=== PATIENT | female | born 2000 | race Caucasian/White ===

== ENCOUNTER 2019-06-21 00:32 | Emergency (ER) | payer MEDICAID ==
[~2019-06-21] VITALS: Ht 160 cm; Wt 126.1 kg
[2019-06-21 00:36] VITALS: Ht 160 cm; Wt 126.1 kg
[2019-06-21 02:54] VITALS: BP 147/84
== END 2019-06-21 03:12 | disposition home or self-care (01) ==
LOC: ED 00:32
DX: M54.2 Cervicalgia (principal); M54.6 Pain in thoracic spine; J45.909 Unspecified asthma, uncomplicated
CPT/HCPCS: J1885

== ENCOUNTER 2019-11-16 17:40 | Emergency (ER) | payer MEDICAID ==
[~2019-11-16] VITALS: Ht 160 cm; Wt 128.4 kg
[2019-11-16 17:52] VITALS: Ht 160 cm; Wt 128.4 kg
[2019-11-16 19:11] VITALS: BP 139/88
== END 2019-11-16 19:11 | disposition home or self-care (01) ==
LOC: ED 17:40
DX: M25.551 Pain in right hip (principal); M25.552 Pain in left hip; J45.909 Unspecified asthma, uncomplicated
CPT/HCPCS: J1885

== ENCOUNTER 2020-01-23 17:54 | Emergency (ER) | payer OTHER, SELFPAY ==
[~2020-01-23] VITALS: Ht 160 cm; Wt 127.0 kg
[2020-01-23 18:11] VITALS: Ht 160 cm; Wt 127.0 kg
[2020-01-23 19:27] LABS: BASOPHIL % 1.7 % (0-2); PLATELET COUNT 258 x10^3mcL (130-400); RED CELL DISTRIBUTION WIDTH 13.5 % (11.5-14.5)
[2020-01-23 23:44] VITALS: BP 120/63
== END 2020-01-23 23:44 | disposition home or self-care (01) ==
LOC: ED 17:54
PROVIDERS: Emergency Medicine
DX: N93.8 Other specified abnormal uterine and vaginal bleeding (principal)
CPT/HCPCS: 36415; J1885; Q0092